=== PATIENT | female | born 1995 | race Caucasian/White ===

== ENCOUNTER 2022-11-23 03:30 | Emergency (ER) | payer OTHER ==
[~2022-11-23] VITALS: Ht 170.2 cm; Wt 90.7 kg
[2022-11-23 03:30] VITALS: BP 133/86
--- NOTE | 2022-11-23 03:33 | NUR ---
[facility] ALS TO BED #6
--- NOTE | 2022-11-23 03:40 | NUR ---
Patient resting in bed, A/Ox4, chest rise and fall symmetrical, no s/s of distress, patient on monitor.
--- NOTE | 2022-11-23 03:45 | NUR ---
ER physician speaking with patient.
--- NOTE | 2022-11-23 04:10 | NUR ---
Patient resting in bed, A/Ox4, chest rise and fall symmetrical, no c/o pain or s/s of distress, patient on monitor
--- NOTE | 2022-11-23 04:45 | NUR ---
Patient discharged with v/s stable. Written and verbal after care instructions given and explained. Patient verbalized understanding. Ambulatory with steady gait. All questions addressed prior to discharge. Advised to follow up with PMD.
[2022-11-23 04:47] VITALS: BP 128/81
== END 2022-11-23 04:45 | disposition home or self-care (01) ==
LOC: MED 03:30
DX: F12.929 Cannabis use, unspecified with intoxication, unspecified (principal)
CPT/HCPCS: 99283